=== PATIENT | male | born 1970 | race Caucasian/White ===

== ENCOUNTER 2021-03-29 11:31 | Outpatient (CLI) | payer OTHER | END 2021-03-29 11:32 | disposition home or self-care (01) | LOC: CSHRAD 11:31 | PROVIDERS: ATTEND Family Medicine Sports Medicine | DX: M54.5 Low back pain (principal) | CPT/HCPCS: 72100 ==

== ENCOUNTER 2022-03-14 12:45 | Outpatient (CLI) | payer OTHER | END 2022-03-14 12:46 | disposition home or self-care (01) | LOC: CSHCT 12:45 | PROVIDERS: ATTEND Family Medicine | DX: Z12.2 Encounter for screening for malignant neoplasm of respiratory organs (principal); F17.210 Nicotine dependence, cigarettes, uncomplicated; J44.9 Chronic obstructive pulmonary disease, unspecified | CPT/HCPCS: 71271 ==

== ENCOUNTER 2023-06-15 16:03 | Outpatient (CLI) | payer OTHER | END 2023-06-15 16:04 | disposition home or self-care (01) | LOC: CSHCT 16:03 | PROVIDERS: ATTEND Family Medicine | DX: Z12.2 Encounter for screening for malignant neoplasm of respiratory organs (principal); F17.210 Nicotine dependence, cigarettes, uncomplicated | CPT/HCPCS: 71271 ==